=== PATIENT | male | born 2005 | race Two or more races ===

== ENCOUNTER 2023-10-10 08:57 | Emergency (ER) | payer SELFPAY ==
[~2023-10-10] VITALS: Ht 165.1 cm; Wt 55.5 kg
[2023-10-10 09:44] VITALS: BP 105/64; PULSE 93; RESP 16; TEMP 98.8; O2SAT 95
[2023-10-10] MEDS ORDERED: LIDO2SOL26 MT (10:01)
[2023-10-10] MEDS ORDERED: AZIT-185 PO (10:01)
[2023-10-10] MEDS: methylPREDNISolone SOD SUCC 125 MG/2 ML VL IM ONE (10:03)
[2023-10-10] MEDS: cefTRIAXone SOD 1,000 MG VL IM ONE (10:04)
== END 2023-10-10 10:20 | disposition home or self-care (01) ==
LOC: ER 08:57
DX: J03.90 Acute tonsillitis, unspecified (principal)
CPT/HCPCS: 96372; 99284; J0696; J2919